=== PATIENT | male | born 2000 | race Caucasian/White ===

== ENCOUNTER 2022-07-24 21:15 | Emergency (ER) | payer SELFPAY ==
[~2022-07-24] VITALS: Ht 172.7 cm; Wt 92.5 kg
[~2022-07-24 21:15] MED LIST: VYVANSE70 MG PO; ZOFRAN ODT4 MG SL
[2022-07-24] MEDS ORDERED: LIDEX 0.05% CRE15 GM T (22:14)
[2022-07-24] MEDS ORDERED: NAPROSYN500 MG PO (22:15)
== END 2022-07-24 22:25 | disposition home or self-care (01) ==
LOC: ED 21:15
DX: M25.511 Pain in right shoulder (principal); Z79.899 Other long term (current) drug therapy

== ENCOUNTER 2023-04-14 05:32 | Emergency (ER) | payer OTHER ==
[~2023-04-14] VITALS: Ht 162.5 cm; Wt 99.8 kg
[~2023-04-14 05:32] MED LIST changes: +LIDEX 0.05% CRE15 GM T; +NAPROSYN500 MG PO
== END 2023-04-14 06:32 | disposition home or self-care (01) ==
LOC: ED 05:32
DX: R11.2 Nausea with vomiting, unspecified (principal); R19.7 Diarrhea, unspecified; F90.9 Attention-deficit hyperactivity disorder, unspecified type; Z98.890 Other specified postprocedural states; Z87.891 Personal history of nicotine dependence

== ENCOUNTER 2025-02-11 19:37 | Emergency (ER) | payer SELFPAY ==
[~2025-02-11] VITALS: Ht 167.6 cm; Wt 97.5 kg
[2025-02-11] MEDS ORDERED: Ondansetron Hydrochloride 4 MG/2 ML VIAL IV ONE (20:45)
[2025-02-11] MEDS ORDERED: SODIUM CHLORIDE 0.9% 1,000 ML IV ONE (20:45)
[2025-02-11 20:58] LABS: HEMATOCRIT 49.7 % (42.0-52.0); MEAN CELL VOLUME 88.9 fl (80.0-94.0); MEAN CORPUSCULAR HGB CONC 32.6 g/dl (33.0-37.0); MEAN PLATELET VOLUME 9.6 fl (9.6-12.3); PLATELET COUNT AUTOMATED 235 10*3/uL (130-400); RED BLOOD COUNT 5.59 10*6/uL (4.50-5.90); RED CELL DISTRI WIDTH 12.7 % (0-14.5); WHITE BLOOD COUNT 13.2 10*3/uL (4.8-10.8)
[2025-02-11 21:00] LABS: MANUAL DIFF REFLEX YES
[2025-02-11 21:18] LABS: BUN 19 mg/dl (9-23); CHLORIDE 102 mmol/L (98-107); POTASSIUM 4.1 mmol/L (3.4-5.1)
[2025-02-11 21:22] LABS: BURR CELLS FEW; PLATELET SUFFICIENCY NORMAL (NORMAL); TOTAL CELLS COUNTED 100 #CELLS
== END 2025-02-11 22:34 | disposition home or self-care (01) ==
LOC: ED 19:37
PROVIDERS: Emergency Medicine
DX: K52.9 Noninfective gastroenteritis and colitis, unspecified (principal); Z79.899 Other long term (current) drug therapy